=== PATIENT | female | born 1940 | race Caucasian/White ===

== ENCOUNTER → 2016-06-23 | Outpatient (CLI) | payer OTHER ==
--- NOTE | 2016-06-23 09:38 | MA ---
Screening Digital Mammogram With iCAD Analysis Clinical Indications: Routine screening. Patient has had a benign right breast biopsy. Technique: Standard cephalocaudal and mediolateral oblique projections were obtained. This examinatio n was processed by the iCAD computer aided detection system. Comparison: May 2015, November 2014, May 2014, May 2013, April 2012, April 2011, [facility] 2009, April 2009. Breast density: Type B; Scattered fibroglandular densities. Findings: CAD was reviewed. No masses, suspicious calcifications or other signs of malignancy are id entified. There has been no significant change in the appearance of either breast. Impression: Negative mammogram. BI-RADS 1. Recommendation: Routine mammographic screening in one year as long as physical examination is negativ [facility] will send a result letter to the patient. Negative mammography should not preclude additional workup of a clinically suspicious finding. The patient's information is entered into a reminder system with a target due date for her next mammo gram.
== END ==
LOC: FIMAGING 07:54
DX: Z12.31 Encounter for screening mammogram for malignant neoplasm of breast (principal)
CPT/HCPCS: G0202

== ENCOUNTER 2016-10-28 07:00 | Inpatient (IN) | payer OTHER ==
[~2016-10-28 07:00] MED LIST: ACETAMINOPHEN 325 MG TAB PO ONE; CHLORHEXIDINE GLUC HIBICLENS 118 ML BTL TP ONE; DEXAMETHASONE 4 MG/ML VIAL IVP ONE; FAMOTIDINE 20 MG TAB PO ONE; ROPI/epiNEPH/KETOROLAC JOINT COCKTAIL IU ONE; TRANEXAMIC ACID 3,000 MG in NS 50 ML IRR ONE; TRANEXAMIC ACID 3,000 MG/50 ML BAG IRR ONE; VANCOMYCIN 1 GM VIAL ONE; VANCOMYCIN HCL/NORMAL SALINE 250 ML IV ONE
[2016-10-28] MEDS ORDERED: fentaNYL 100 MCG/2 ML INJ ONE (08:19)
[2016-10-28] MEDS ORDERED: LIDOCAINE 1% 5 ML SDV ID PRN (08:23)
[2016-10-28] MEDS ORDERED: LR 1,000 ML IV ONE (08:23)
[2016-10-28] MEDS ORDERED: MIDAZOLAM 2 MG/2 ML VIAL ONE (08:54)
[2016-10-28] MEDS ORDERED: SCOPOLAMINE HYDROBROMIDE 1.5 MG PATCH TD ONE ×2 (08:54→09:00)
[2016-10-28] MEDS ORDERED: ONDANSETRON 4 MG/2 ML VIAL ONE (08:59)
[2016-10-28] MEDS ORDERED: PHENYLEPHRINE HCL 100 MCG/ML SYR ONE (10:13)
[2016-10-28] MEDS ORDERED: PROPOFOL/EMULSION 500 MG/50 ML BOTTLE IV ONE (10:14)
[2016-10-28] MEDS ORDERED: LIDOCAINE 2% 5 ML SDV ONE ×2 (10:15)
[2016-10-28] MEDS ORDERED: ONDANSETRON 4 MG/2 ML VIAL IVP PRN (10:27)
[2016-10-28] MEDS ORDERED: DIPHENOXYLATE/ATROPINE LOMOTIL 1 TAB PO PRN (10:27)
[2016-10-28] MEDS ORDERED: METOCLOPRAMIDE 10 MG/2 ML VIAL IVP PRN (10:27)
[2016-10-28] MEDS ORDERED: BISACODYL 10 MG SUPP PR PRN (10:27)
[2016-10-28] MEDS ORDERED: TEMAZEPAM 15 MG CAP PO PRN (10:27)
[2016-10-28] MEDS ORDERED: CYCLOBENZAPRINE 10 MG TAB PO PRN (10:27)
[2016-10-28] MEDS ORDERED: LACTULOSE 20 GM/30 ML UDCUP PO PRN (10:27)
[2016-10-28] MEDS ORDERED: PHARMACY PAIN CONSULT 1 EA MISC PRN (10:27)
[2016-10-28] MEDS ORDERED: ONDANSETRON DISINTEGRATING 4 MG TAB PO PRN (10:27)
[2016-10-28] MEDS ORDERED: MAGNESIUM HYDROXIDE 30 ML UDCUP PO PRN (10:27)
[2016-10-28] MEDS ORDERED: PROMETHAZINE HCL 25 MG/ML INJ IVP PRN (10:27)
[2016-10-28] MEDS ORDERED: POLYETHYLENE GLYCOL 3350 17 GM PKT PO PRN (10:27)
[2016-10-28] MEDS ORDERED: diphenhydrAMINE 25 MG CAP PO PRN (10:27)
[2016-10-28] MEDS ORDERED: PROMETHAZINE HCL 25 MG SUPPR PR PRN (10:27)
--- NOTE | 2016-10-28 10:27 | POSTOPPROG ---
Post Op Note Date of Operation: 10/28/16 Surgeon: Marcos Mitchell Audio/Video Technician: stefania mitchell Anesthesiologist: dr. schmitz Anesthesia: Spinal, Other (Specify) (adductor canal block) Pre-op Diagnosis: left knee OA Post-op Diagnosis: same Indication: left knee pain due to OA that failed conservative measures Procedure: L TKA Findings: severe knee OA Inf/Abcess present in the surg proc area at time of surgery?: No EBL: 50-100
[2016-10-28] MEDS ORDERED: ZOLPIDEM TARTRATE 6.25 MG PO PRN (10:28)
[2016-10-28] MEDS ORDERED: PANTOPRAZOLE SODIUM 40 MG TAB PO PRN (10:28)
[2016-10-28] MEDS ORDERED: LR 1,000 ML IV SCH (10:30)
[2016-10-28] MEDS ORDERED: ZOLPIDEM TARTRATE 5 MG TAB PO PRN (11:42)
[2016-10-28] MEDS: ACETAMINOPHEN 325 MG TAB PO SCH ×2 (12:17→18:44)
[2016-10-28] MEDS: oxyCODONE IR 5 MG TAB PO PRN ×2 (14:54→19:47)
[2016-10-28] MEDS: BISOPROLOL/HCTZ 10/6.25MG 1 EACH TAB PO SCH (15:17)
[2016-10-28] MEDS: FAMOTIDINE 20 MG TAB PO SCH (20:11)
[2016-10-28] MEDS: SENNOSIDES/DOCUSATE SODIUM TAB PO SCH (20:12)
[2016-10-28] MEDS: ASPIRIN 325 MG TAB PO SCH (21:49)
[2016-10-29] MEDS: ACETAMINOPHEN 325 MG TAB PO SCH ×3 (01:20→06:02)
[2016-10-29] MEDS: oxyCODONE IR 5 MG TAB PO PRN (03:08)
[2016-10-29 03:10] VITALS: O2SAT 95
[2016-10-29 05:44] LABS: HEMATOCRIT 37.4 % (38.0-47.0); HEMOGLOBIN 12.3 g/dL (12.6-16.3)
--- NOTE | 2016-10-29 05:58 | GOP ---
[f rep st] OPERATIVE REPORT DATE OF OPERATION: 10/28/2016 SURGEON: Emily Hernandez MD FINISHER POLISHER: YARED Pugh ANESTHESIA: Spinal. PREOPERATIVE DIAGNOSIS: Left knee osteoarthritis. POSTOPERATIVE DIAGNOSIS: Left knee osteoarthritis. PROCEDURE PERFORMED: Left total knee arthroplasty. FINDINGS: ESTIMATED BLOOD LOSS: 30 cc. INDICATIONS: This is a 76-year-old female with severe and progressive pain and deformity of the lef t knee unresponsive to conservative care. Risks and benefits of the surgical intervention were expl ained in detail. DESCRIPTION OF PROCEDURE: The patient was brought to the operative room and placed on the table in the supine position. Spinal anesthesia was induced without difficulty. A pneumatic tourniquet was applied about the left proximal thigh, and the leg was prepped and draped in a sterile fashion. The leg bay was applied. After exsanguination by elevation the tourniquet was inflated to 250 mm of mercury. Incision was made anterior medial from the tibial tuberosity to a point 2 cm proximal to the superio r pole of the patella. Medial parapatellar arthrotomy was carried out from the superior pole of the patella and posteriorly in line with the fibers of the Type 2 VMO. The medial collateral ligament was elevated and the infrapatellar fat pad was resected. The patella was everted and the articular surface was excised. A 9 mm patellar button was placed. T he distal femoral guide hole was drilled and the 6 degree alignment kvng was placed. A 10 mm distal femoral cut was made without difficulty. Attention was turned to the tibia and a standard 9 mm cut based on the lateral tibial condyle was pe rformed. The tibial articular surface was excised without difficulty. Attention was turned back to the femur and a size 3 Triathlon femoral cutting block was positioned. Anterior, posterior, and chamfer cuts were made, followed by the intercondylar box cut. The knee was extended and the remnants of the medial and lateral meniscus were excised. The posteri or capsule was injected with ropivacaine, epinephrine and Toradol. A size 3 MIS mini-keel tibial tr ay was positioned. Trial reduction was then carried out. There was excellent range of motion, alig nment, and stability using the 9 mm polyethylene. All trials were then removed. The joint was thoroughly irrigated and carefully dried. Two packages of cement and 2 grams of vancomycin were mixed in the vacuum mixer and placed on the fixation surfa ranjit of all surfaces of the components. The components were implanted and all excess cement was thor oughly removed. The permanent 9 mm polyethylene X3 was placed without difficulty. The tourniquet was deflated and all bleeders were coagulated. The wound was thoroughly irrigated an d closed using interrupted sutures of 2-0 Vicryl for the joint capsule. The subcu was closed with 3 -0 Vicryl and the skin with 4-0 Monocryl. Dermabond and Steri-Strips were applied followed by a com pressive dressing. The patient was then moved from the operating room to the recovery room in good condition, having tolerated the procedure well. PATHOLOGY: Severe medial and patellofemoral osteoarthritis. /[id number]/MODL
[2016-10-29 06:23] LABS: ANION GAP 7 mEq/L (8-16); CALCIUM 9.4 mg/dL (8.5-10.4); CARBON DIOXIDE 25 mEq/l (22-31); CHLORIDE 105 mEq/L (97-110); CREATININE 0.8 mg/dL (0.6-1.0); GLOMERULAR FILTRATION RATE > 60; GLUCOSE 107 mg/dL (70-100); POTASSIUM 4.3 mEq/L (3.5-5.2); SODIUM 137 mEq/L (134-144)
[2016-10-29] MEDS ORDERED: VANCOMYCIN HCL/NORMAL SALINE 250 ML IV ONE (08:00)
[2016-10-29 08:05] VITALS: BP 143/64; PULSE 68; RESP 18; TEMP 97.6
[2016-10-29] MEDS: BISOPROLOL/HCTZ 10/6.25MG 1 EACH TAB PO SCH (08:35)
[2016-10-29] MEDS: ASPIRIN 325 MG TAB PO SCH (08:35)
[2016-10-29] MEDS: FAMOTIDINE 20 MG TAB PO SCH (08:36)
[2016-10-29] MEDS: SENNOSIDES/DOCUSATE SODIUM TAB PO SCH (08:36)
[2016-10-29] MEDS ORDERED: PRAVASTATIN SODIUM 40 MG TAB PO SCH (09:00)
[2016-10-29] MEDS ORDERED: buPROPion SR 150 MG TAB PO SCH (09:00)
--- NOTE | 2016-10-29 19:59 | SOAPPROG ---
SOAP Progress Note Assessment/Plan: Assessment: Kati is doing well POD 1 s/p L TKA 1) pain management: pain is well controlled on oral pain meds, discussed that adductor canal block is still working and will wear off this evening. With that , pain will increase. 2) anemia: level expected initially postop 3) VTe ppx: recommend aspirin daily x 3 weeks 4) D/c planning: d/c to home today. Plan: 10/29/16 13:56 Subjective: Kati is doing well today, denies SOB, chest pain and n/V. Objective: Vital Signs Temp Pulse Resp BP Pulse Ox 36.4 C 68 18 143/64 H 95 10/29/16 08:00 10/29/16 08:00 10/29/16 08:00 10/29/16 08:00 10/29/16 08:00 Laboratory Results 10/29/16 04:42 10/29/16 04:42 10/28/16 10/29/16 10/30/16 05:59 05:59 05:59 Intake Total 1380 Output Total 935 Balance 445 LLE; incision dressing is clean and dry, NVI, +pf/df ICD10 Worksheet Patient Problems: Problems Problem Status Onset Primary localized osteoarthritis of left knee Acute Status post hysteroscopy Acute
--- NOTE | 2016-10-30 21:03 | GDS ---
[f rep st] DISCHARGE SUMMARY ADMISSION DIAGNOSIS: Left knee osteoarthritis. DISCHARGE DIAGNOSIS: Left knee osteoarthritis. PROCEDURE: Left total knee arthroplasty. VTE PROPHYLAXIS: Aspirin recommended for 3 weeks daily. BRIEF DESCRIPTION OF HOSPITAL STAY: Patient was admitted for an elective joint arthroplasty. The p atient tolerated the procedure well and has passed physical therapy. The patient was given appropri ate antibiotic prophylaxis and venous thromboembolism prophylaxis. The patient's pain was well cont rolled on oral pain medication, patient was holding down food, and had urinated. Decision was made to discharge the patient. The patient was given post-operative prescriptions pre-operatively. PLAN: Please follow up as scheduled in Dr. Hernandez's office, November 16, at 8 a.m. /[id number]/MODL
== END 2016-10-29 12:39 | disposition home or self-care (01) | DRG 470 ==
LOC: F3E 07:00 → F3N 11:52
PROVIDERS: ADMIT Orthopaedic Surgery; ATTEND Orthopaedic Surgery
PROC: 0SRD0J9 Replacement of Left Knee Joint with Synthetic Substitute, Cemented, Open Approach (ICD-10-PCS; principal; 2016-10-28 09:15)
DX: M17.12 Unilateral primary osteoarthritis, left knee (principal); I10 Essential (primary) hypertension
CPT/HCPCS: 97116-GP; 97161-GP; 97165-GO; 97530-GP; C1713; G8978-GP-CJ; G8979-GP-CI; G8980-GP-CI; G8987-GO-CI; G8988-GO-CI; G8989-GO-CI; J0171; J1100; J1885; J2250; J2370; J2405; J2550; J2704; J2795; J3010; J3370

== ENCOUNTER → 2017-06-24 | Outpatient (CLI) | payer OTHER | LOC: FIMAGING 07:33 | PROVIDERS: ATTEND Obstetrics & Gynecology | DX: Z12.31 Encounter for screening mammogram for malignant neoplasm of breast (principal) ==

== ENCOUNTER → 2018-06-28 | Outpatient (CLI) | payer OTHER | LOC: FIMAGING 07:32 | PROVIDERS: ATTEND Obstetrics & Gynecology | DX: Z12.31 Encounter for screening mammogram for malignant neoplasm of breast (principal) ==

== ENCOUNTER → 2018-08-24 | Outpatient (CLI) | payer OTHER | LOC: FIMAGING 08:06 | PROVIDERS: ATTEND Family Medicine | DX: Z13.820 Encounter for screening for osteoporosis (principal); M81.0 Age-related osteoporosis without current pathological fracture; Z78.0 Asymptomatic menopausal state ==